=== PATIENT | male | born 1945 | race Caucasian/White ===

== ENCOUNTER 2018-04-16 17:23 | Emergency (ER) | payer MEDICARE, OTHER ==
[2018-04-16 18:26] VITALS: BP 180/89
--- NOTE | 2018-04-16 19:08 | EDM.PDOC ---
ED HPI GENERAL MEDICAL PROBLEM - General Chief Complaint: Bite:Animal, Insect Stated Complaint: WOODTICK BITE ON RT SHOULDER Time Seen by Provider: 04/16/18 18:58 Source of Information: Reports: Patient History Limitations: Reports: No Limitations - History of Present Illness INITIAL COMMENTS - FREE TEXT/NARRATIVE: Tick bite to right chest; about 5 days ago, removed a tick from chest, very difficult to remove. For the past two days has a fever with temp up 101, body aches, chills and joint pain. He is eating okay, denies any nausea, vomiting or diarrhea. rash on right chest, and right upper arm. Duration: Day(s): (5 days ago), Getting Worse (x2 days) Location: Reports: Generalized Quality: Reports: Ache (body aches and chillls) Severity: Moderate Improves with: Reports: Medication (fever controlled with tylenol) Worsens with: Reports: None Associated Symptoms: Reports: Fever/Chills, Malaise, Rash (right upper chest and right upper arm) Treatments RECONSTRUCTIVE DENTIST: Reports: Acetaminophen, NSAIDS Neck Pain Score (Numeric/FACES): 4 - Related Data Allergies Allergy/AdvReac Type Severity Reaction Status Date / Time Penicillins Allergy Difficulty Verified 12/29/15 10:45 Breathing Home Meds: Home Meds Clopidogrel [Plavix] 75 mg PO DAILY 12/25/14 [History] Metoprolol Tartrate [Lopressor] 25 mg PO BID 12/25/14 [History] Simvastatin [Zocor] 20 mg PO BEDTIME 12/25/14 [History] Naproxen Sodium [Aleve] 220 mg PO Q6H PRN 04/16/18 [History] Past Medical History Cardiovascular History: Reports: Stents Musculoskeletal History: Reports: Arthritis, Fracture, Osteoporosis Psychiatric History: Reports: Depression, Panic Attack, PTSD Endocrine/Metabolic History: Reports: Osteoporosis Hematologic History: Reports: Anticoagulation Therapy Dermatologic History: Reports: Other (See Below) Other Dermatologic History: rash - Past Surgical History Musculoskeletal Surgical History: Reports: None Social & Family History - Tobacco Use Smoking Status *Q: Current Every Day Smoker Years of Tobacco use: 56 Packs/Tins Daily: 1.5 - Caffeine Use Caffeine Use: Reports: Coffee, Soda - Alcohol Use Days Per Week of Alcohol Use: 7 Number of Drinks Per Day: 2 Total Drinks Per Week: 14 - Recreational Drug Use Recreational Drug Use: No - Living Situation & Occupation Occupation: Other (lives with his 3 dogs and 2 cats.) ED ROS GENERAL - Review of Systems Review Of Systems: See Below Constitutional: Reports: Fever, Chills, Fatigue, Other (body and joint aches) HEENT: Reports: No Symptoms Respiratory: Reports: No Symptoms Cardiovascular: Reports: No Symptoms Endocrine: Reports: No Symptoms GI/Abdominal: Reports: No Symptoms : Reports: No Symptoms Musculoskeletal: Reports: Shoulder Pain (right), Joint Pain, Muscle Pain, Muscle Stiffness (generalized) Skin: Reports: Bruising (from tick bite right upper arm and chest), Rash Neurological: Reports: No Symptoms Psychiatric: Reports: No Symptoms Hematologic/Lymphatic: Reports: No Symptoms Immunologic: Reports: No Symptoms ED EXAM, ANIMAL BITE - Physical Exam Exam: See Below Exam Limited By: No Limitations General Appearance: Alert, WD/WN, No Apparent Distress Eye Exam: Bilateral Eye: Conjunctival Injection Neck: Supple, Full Range of Motion Respiratory/Chest: No Respiratory Distress, Lungs Clear, Normal Breath Sounds, No Accessory Muscle Use Cardiovascular: Regular Rate, Rhythm, No Murmur Extremities: Normal Inspection, Normal Range of Motion, Non-Tender, Normal Capillary Refill, No Pedal Edema Neurological: No Motor/Sensory Deficits Psychiatric: Normal Affect, Normal Mood Skin Exam: Rash (rash noted to upper right chest and upper. bright pink tangirnaq to right upper arm extending into chest.) Lymphadenopathy: Bilateral: No Adenopathy Lymphatic: No Adenopathy Course - Vital Signs Last Recorded V/S: Last Vital Signs Temp 36.5 C 04/16/18 18:24 Pulse 69 04/16/18 18:24 Resp 16 04/16/18 18:24 BP 180/89 H 04/16/18 18:24 Pulse Ox 96 04/16/18 18:24 Departure - Departure Time of Disposition: 19:25 Disposition: Home, Self-Care 01 Condition: Good Clinical Impression: Acute Lyme disease Tick bite Qualifiers: Encounter type: initial encounter Qualified Code(s): W57.XXXA - Bitten or stung by nonvenomous insect and other nonvenomous arthropods, initial encounter - Discharge Information Referrals: Davey Yan MD [Primary Care Provider] - Forms: ED Department Discharge Care Plan Goals: Lymes disease -start tonight; Doxy 100mg by mouth two times a day for 14 days -continue Tylenol or Motrin for pain or fever. -follow up with Primary Care Doctor for recheck in 10 to14 days Return to ER for any increase pain, fever, chills, nausea, vomiting or not improved - Problem List & Annotations (1) Tick bite SNOMED Code(s): 47336838 Code(s): W57.XXXA - BIT/STUNG BY NONVENOM INSECT & OTH NONVENOM ARTHROPODS, INIT Status: Acute Priority: High Current Visit: Yes Qualifiers: Encounter type: initial encounter Qualified Code(s): W57.XXXA - Bitten or stung by nonvenomous insect and other nonvenomous arthropods, initial encounter (2) Acute Lyme disease SNOMED Code(s): 792203472 Code(s): A69.20 - LYME DISEASE, UNSPECIFIED Status: Acute Priority: High Current Visit: Yes - Problem List Review Problem List Initiated/Reviewed/Updated: Yes - Assessment/Plan Plan: Lymes disease -start tonight; Doxy 100mg by mouth two times a day for 14 days -continue Tylenol or Motrin for pain or fever. -follow up with Primary Care Doctor for recheck in 10 to14 days Return to ER for any increase pain, fever, chills, nausea, vomiting or not improved
== END 2018-04-16 19:28 | disposition home or self-care (01) ==
LOC: JP.ED 17:23
DX: S20.361A Insect bite (nonvenomous) of right front wall of thorax, initial encounter (principal); A69.20 Lyme disease, unspecified; Z88.0 Allergy status to penicillin; Z79.899 Other long term (current) drug therapy; Z79.01 Long term (current) use of anticoagulants; F17.210 Nicotine dependence, cigarettes, uncomplicated; W57.XXXA Bitten or stung by nonvenomous insect and other nonvenomous arthropods, initial encounter
CPT/HCPCS: 99283; 99284

== ENCOUNTER → 2021-02-22 | Day surgery (SDC) | payer OTHER, MEDICARE ==
[2021-02-22] MEDS: Sodium Chloride 0.9% 10 ML Syringe FLUSH PRN (06:30)
[2021-02-22 07:50] VITALS: BP 108/64; PULSE 96
--- NOTE | 2021-02-22 13:47 | OR ---
DATE OF PROCEDURE: 02/22/2021 SURGEON: Yolie Castaneda MD POSTOPERATIVE CARE: Postoperative care will be provided mainly at the [address] [place] [address] Eye [facility] in conjunction with [facility]. PREOPERATIVE DIAGNOSIS: Cataract, right eye. POSTOPERATIVE DIAGNOSIS: Cataract, right eye. PROCEDURE: Phacoemulsification with intraocular lens placement, right eye. ANESTHESIA: Topical and intracameral. ESTIMATED BLOOD LOSS: Minimal. COMPLICATIONS: None. PATHOLOGY SPECIMENS: None. SURGICAL FINDINGS: None. INDICATION FOR PROCEDURE: The patient is a 76-year-old male with history of a visually significant cataract in the right eye, which interfered with activities of daily living. This consisted of a nuclear sclerosis cataract. Following careful discussion of the risks, benefits and alternatives to cataract extraction with intraocular lens placement including blindness and , the patient elected to proceed, and informed, written consent was obtained prior to the procedure. DESCRIPTION OF THE PROCEDURE: The patient was previously identified, and a tanya placed above the right eye. All sources, including the patient, indicated that the right eye was the correct eye. The patient was subsequently taken to the operating room where standard monitors were applied. The patient was then prepped and draped in the usual sterile fashion for ophthalmic surgery. Attention was first directed at the 12 o'clock position where a paracentesis port was fashioned. Shugar solution followed by Viscoat was instilled into the eye. Attention was then directed to the 8:30 position where a triplanar incision was made in a near-clear manner using a keratome. A continuous capsulorrhexis was then made using a combination of the cystotome and Utrata forceps. Hydrodissection was achieved using a balanced salt solution, and the lens rotated nicely. Phacoemulsification was then done using a modified [id number] technique without complication. Phaco time was 7.86 CDE. The remaining cortex was removed using the irrigation/aspiration handpiece. Provisc was then instilled into the eye. A Technis lens, model DCB00, at 16.0 diopters was then placed in the capsular bag using an Noma injector. The remaining viscoelastic was removed using the irrigation/aspiration forceps. All wounds were then checked and found to be watertight. The lid speculum and drapes were removed. Maxitrol ointment was placed in the patient's right eye, and the eye was shielded. The patient tolerated the procedure well. The patient was instructed to follow up tomorrow. All needle and sponge counts were correct at the end of the procedure. There were no surgical findings. Yolie Castaneda MD /[id number]
== END ==
LOC: JP.SDS 05:54
PROVIDERS: ATTEND Ophthalmology
DX: H25.11 Age-related nuclear cataract, right eye (principal); Z88.0 Allergy status to penicillin
CPT/HCPCS: V2787-GY

== ENCOUNTER 2021-03-08 06:18 | Day surgery (SDC) | payer OTHER, MEDICARE ==
[2021-03-08] MEDS: Acetaminophen 500 MG Tab PO ONE (07:08)
[2021-03-08] MEDS: Sodium Chloride 0.9% 10 ML Syringe FLUSH PRN (07:09)
[2021-03-08 07:42] VITALS: BP 121/82; PULSE 104
--- NOTE | 2021-03-10 12:19 | OR ---
DATE OF PROCEDURE: 03/08/2021 SURGEON: Yolie Castaneda MD POSTOPERATIVE CARE: Postoperative care will be provided mainly at the [address] [place] [address] Eye [facility] in conjunction with [facility]. PREOPERATIVE DIAGNOSIS: Cataract, left eye. POSTOPERATIVE DIAGNOSIS: Cataract, left eye. PROCEDURE: Phacoemulsification with intraocular lens placement, left eye. ANESTHESIA: Topical and intracameral. ESTIMATED BLOOD LOSS: Minimal. COMPLICATIONS: None. PATHOLOGY SPECIMENS: None. SURGICAL FINDINGS: None. INDICATION FOR PROCEDURE: The patient is a 76-year-old male with history of a visually significant cataract in the left eye, which interfered with activities of daily living. This consisted of a nuclear sclerosis cataract. Following careful discussion of the risks, benefits and alternatives to cataract extraction with intraocular lens placement including blindness and , the patient elected to proceed, and informed, written consent was obtained prior to the procedure. DESCRIPTION OF THE PROCEDURE: The patient was previously identified, and a tanya placed above the left eye. All sources, including the patient, indicated that the left eye was the correct eye. The patient was subsequently taken to the operating room where standard monitors were applied. The patient was then prepped and draped in the usual sterile fashion for ophthalmic surgery. Attention was first directed at the 12 o'clock position where a paracentesis port was fashioned. Shugar solution followed by Viscoat was instilled into the eye. Attention was then directed to the 8:30 position where a triplanar incision was made in a near-clear manner using a keratome. A continuous capsulorrhexis was then made using a combination of the cystotome and Utrata forceps. Hydrodissection was achieved using a balanced salt solution, and the lens rotated nicely. Phacoemulsification was then done using a modified [id number] technique without complication. Phaco time was 5.10 CDE. The remaining cortex was removed using the irrigation/aspiration handpiece. Provisc was then instilled into the eye. A Technis lens, model DCB00, at 16.0 diopters was then placed in the capsular bag using an Creighton injector. The remaining viscoelastic was removed using the irrigation/aspiration forceps. All wounds were then checked and found to be watertight. The lid speculum and drapes were removed. Maxitrol ointment was placed in the patient's left eye, and the eye was shielded. The patient tolerated the procedure well. The patient was instructed to follow up tomorrow. All needle and sponge counts were correct at the end of the procedure. Yolie Castaneda MD /[id number]
== END 2021-03-08 07:57 | disposition home or self-care (01) ==
LOC: JP.SDS 06:18
PROVIDERS: ATTEND Ophthalmology
DX: H26.9 Unspecified cataract (principal); I25.10 Atherosclerotic heart disease of native coronary artery without angina pectoris; Z88.0 Allergy status to penicillin
CPT/HCPCS: A9270-GY; V2632

== ENCOUNTER 2021-03-13 19:55 | Emergency (ER) | payer OTHER, MEDICARE ==
[2021-03-13] MEDS ORDERED: Sodium Chloride 0.9% 1,000 ML IV SCH (21:00)
[2021-03-13] MEDS ORDERED: Iopamidol 612 MG/ML 100 ML Bottle IV SCH (22:30)
[2021-03-13] MEDS ORDERED: Sodium Chloride 0.9% 80 ML IV SCH (22:30)
--- NOTE | 2021-03-14 00:11 | EDM.PDOC ---
ED HPI GENERAL MEDICAL PROBLEM - General Chief Complaint: Syncope Stated Complaint: MEDICAL VIA [facility] Time Seen by Provider: 03/13/21 20:20 Source of Information: Reports: Patient, Family History Limitations: Reports: No Limitations - History of Present Illness INITIAL COMMENTS - FREE TEXT/NARRATIVE: 76-year-old male, , arrives by ambulance after having progressive. He usually has enough energy and strength to live independently but the last couple of weeks he has had recurring syncope and falls. Tonight he fell in his apartment, he did not get hurt but had to crawl on his knees to get to a phone. He has lost 30 pounds over the past 6 months, and is having worsening back pain. Onset: Gradual Duration: Chronic Lower Back Pain Score (Numeric/FACES): 3 - Related Data Allergies Allergy/AdvReac Type Severity Reaction Status Date / Time Penicillins Allergy Difficulty Verified 03/13/21 20:25 Breathing Home Meds: Home Meds Clopidogrel [Plavix] 75 mg PO DAILY 12/25/14 [History] Metoprolol Tartrate [Lopressor] 25 mg PO BID 12/25/14 [History] Simvastatin [Zocor] 20 mg PO BEDTIME 12/25/14 [History] Losartan [Cozaar] 50 mg pe PO DAILY 02/19/21 [History] diphenhydrAMINE [Benadryl] 25 mg PO Q8HR PRN 03/06/21 [History] Past Medical History HEENT History: Reports: Cataract Cardiovascular History: Reports: CAD, High Cholesterol, Hypertension Gastrointestinal History: Reports: Chronic Constipation Musculoskeletal History: Reports: Arthritis, Fracture, Osteoporosis Psychiatric History: Reports: Depression, Panic Attack, PTSD Endocrine/Metabolic History: Reports: Osteoporosis Hematologic History: Reports: Anticoagulation Therapy Dermatologic History: Reports: Other (See Below) Other Dermatologic History: rash - Infectious Disease History Infectious Disease History: Reports: Chicken Pox, Measles, Mumps - Past Surgical History HEENT Surgical History: Reports: Cataract Surgery Cardiovascular Surgical History: Reports: None GI Surgical History: Reports: Colonoscopy Endocrine Surgical History: Reports: None Musculoskeletal Surgical History: Reports: None Dermatological Surgical History: Reports: None Social & Family History - Family History Family Medical History: No Pertinent Family History - Tobacco Use Tobacco Use Status *Q: Current Some Day Tobacco User Years of Tobacco use: 40 Packs/Tins Daily: 1 Used Tobacco, but Quit: No Second Hand Smoke Exposure: No - Caffeine Use Caffeine Use: Reports: Coffee, Soda - Alcohol Use Days Per Week of Alcohol Use: 2 Number of Drinks Per Day: 1 Total Drinks Per Week: 2 - Recreational Drug Use Recreational Drug Use: No - Living Situation & Occupation Occupation: Other (lives with his 3 dogs and 2 cats.) ED ROS GENERAL - Review of Systems Review Of Systems: See Below Constitutional: Reports: Malaise, Weight Loss. Denies: Fever, Chills HEENT: Denies: Throat Pain Respiratory: Denies: Shortness of Breath, Cough, Sputum Cardiovascular: Denies: Chest Pain, Palpitations GI/Abdominal: Reports: Decreased Appetite. Denies: Abdominal Pain, Nausea, Vomiting : Reports: Flank Pain (Especially right-sided) Musculoskeletal: Reports: Back Pain Skin: Denies: Bruising Neurological: Reports: Dizziness, Syncope, Weakness Psychiatric: Reports: No Symptoms ED EXAM, GENERAL - Physical Exam Exam: See Below Exam Limited By: No Limitations General Appearance: Alert, No Apparent Distress Eye Exam: Bilateral Eye: Normal Inspection Head: Atraumatic Neck: Non-Tender Respiratory/Chest: Lungs Clear Cardiovascular: Regular Rate, Rhythm. No: Extra Beats GI/Abdominal: Soft, Non-Tender Back Exam: No: CVA Tenderness (R), CVA Tenderness (L), Paraspinal Tenderness, Vertebral Tenderness Extremities: Normal Inspection. No: Pedal Edema Neurological: Alert, Oriented, No Motor/Sensory Deficits Psychiatric: Normal Affect, Normal Mood Skin Exam: Warm, Dry Course - Vital Signs Last Recorded V/S: Last Vital Signs Temp 97.7 F 03/14/21 01:21 Pulse 94 03/14/21 01:21 Resp 16 03/14/21 01:21 BP 114/69 03/14/21 01:21 Pulse Ox 99 03/14/21 01:21 - Orders/Labs/Meds Orders: Active Orders 24 hr Category Date Time Status Iopamidol [Isovue-300 (61%)] Med 03/13/21 22:30 Active 100 ml IV . DIRECTED Sodium Chloride 0.9% [Normal Saline] 1,000 ml Med 03/13/21 21:00 Active IV ASDIRECTED Sodium Chloride 0.9% [Normal Saline] 80 ml Med 03/13/21 22:30 Active IV ASDIRECTED Medication Orders Sodium Chloride (Normal Saline) 1,000 mls @ 999 mls/hr IV ASDIRECTED ALFIE Last Admin: 03/13/21 21:25 Dose: 999 mls/hr Documented by: NGUYEN Sodium Chloride (Normal Saline) 80 mls @ 3 mls/sec IV ASDIRECTED ALFIE Last Admin: 03/13/21 22:40 Dose: 3 mls/sec Documented by: CARMINA Iopamidol (Iopamidol 612 Mg/Ml 100 Ml Bottle) 100 ml IV . DIRECTED ALFIE Last Admin: 03/13/21 22:40 Dose: 100 ml Documented by: CARMINA Labs: Laboratory Tests 03/13/21 03/13/21 03/13/21 Range/Units 21:02 22:12 22:31 WBC 11.2 H (4.5-11.0) K/uL RBC 3.67 L (4.30-5.90) M/uL Hgb 11.3 L (12.0-15.0) g/dL Hct 35.4 L (40.0-54.0) % MCV 97 (80-98) fL MCH 31 (27-31) pg MCHC 32 (32-36) % Plt Count 414 H (150-400) K/uL Neut % (Auto) 71 H (36-66) % Lymph % (Auto) 17 L (24-44) % [place] % (Auto) 10 H (2-6) % Eos % (Auto) 2 (2-4) % Baso % (Auto) 0 (0-1) % Sodium 144 (140-148) mmol/L Potassium 4.5 (3.6-5.2) mmol/L Chloride 107 (100-108) mmol/L Carbon Dioxide 26 (21-32) mmol/L Anion Gap 10.6 (5.0-14.0) mmol/L BUN 26 H (7-18) mg/dL Creatinine 0.9 (0.8-1.3) mg/dL Est Cr Clr Drug Dosing 60.06 mL/min Estimated GFR (MDRD) > 60 (>60) Glucose 86 (74-106) mg/dL Calcium 9.1 (8.5-10.1) mg/dL Urine Color Yellow (YELLOW) Urine Appearance Slightly cloudy A (CLEAR) Urine pH 6.0 (5.0-8.0) Ur Specific Stout 1.015 (1.008-1.030) Urine Protein Trace H (NEGATIVE) mg/dL Urine Glucose (UA) Negative (NEGATIVE) mg/dL Urine Ketones Negative (NEGATIVE) mg/dL Urine Occult Blood Negative (NEGATIVE) Urine Nitrite Negative (NEGATIVE) Urine Bilirubin Negative (NEGATIVE) Urine Urobilinogen 0.2 (0.2-1.0) EU/dL Ur Leukocyte Esterase Negative (NEGATIVE) Urine RBC Not seen (0-5) Urine WBC 0-5 (0-5) Ur Epithelial Cells Few Amorphous Sediment Not seen Urine Bacteria Not seen Urine Mucus Moderate Urine Other Meds: Medications Generic Name Dose Route Start Last Admin Trade Name Freq PRN Reason Stop Dose Admin Sodium Chloride 1,000 mls @ 999 mls/hr 03/13/21 21:00 03/13/21 21:25 Normal Saline IV 999 mls/hr ASDIRECTED ALFIE Administration Sodium Chloride 80 mls @ 3 mls/sec 03/13/21 22:30 03/13/21 22:40 Normal Saline IV 3 mls/sec ASDIRECTED ALFIE Administration Iopamidol 100 ml 03/13/21 22:30 03/13/21 22:40 Iopamidol 612 Mg/Ml 100 Ml Bottle IV 100 ml . DIRECTED ALFIE Administration Discontinued Medications Generic Name Dose Route Start Last Admin Trade Name Freq PRN Reason Stop Dose Admin Hydromorphone HCl 0.5 mg 03/14/21 01:32 03/14/21 01:37 Hydromorphone 0.5 Mg/0.5 Ml Syringe IVPUSH 03/14/21 01:33 0.5 mg ONETIME ONE Administration - Re-Assessments/Exams Free Text/Narrative Re-Assessment/Exam: 03/14/21 02:02 CBC, BMP and UA were obtained. These were reassuring and showed no evidence of infection. A CT scan of the chest abdomen and pelvis were then obtained with IV contrast and the following results were found. IMPRESSION: 1. 6.1 x 5.2 x 3.0 centimeter left lung mass as detailed above, suspicious for primary lung malignancy. 2. Indeterminate 3-4 millimeter noncalcified nodule in the right lung. 3. Bulky periaortic lymphadenopathy in the abdomen and moderately enlarged portacaval lymphadenopathy. 4. Heterogeneous 8.6 x 5.1 x 6.2 centimeter right adrenal metastasis and small 1.7 centimeter left adrenal metastasis. 5. Nonspecific wall thickening of the right renal pelvis. Infected is possible and correlation with urinalysis is suggested. 6. Nonacute additional findings as detailed above. These findings were discussed with the patient, the metastatic disease to the right adrenal gland is likely causing his right flank pain. Discussed his condition with the hospitalist service in [facility], and the patient needs oncology work-up as well as interventional radiology for biopsies and is too weak to go home and his blood pressure is too labile, so Dr. Casey kindly accepted the patient for transfer for direct admission. He was given 0.5 mg of IV Dilaudid prior to transfer. Departure - Departure Time of Disposition: 01:40 Disposition: DC/Tfer to Other Clinical Impression: Right flank pain, chronic Metastatic lung cancer (metastasis from lung to other site) Qualifiers: Laterality: left Qualified Code(s): C34.92 - Malignant neoplasm of unspecified part of left bronchus or lung Hypotension Qualifiers: Hypotension type: unspecified hypotension type Qualified Code(s): I95.9 - Hypotension, unspecified - Discharge Information Referrals: PCP,None [Primary Care Provider] - Forms: ED Department Discharge Care Plan Goals: Patient is to be transferred to [facility] for initial stabilization by the hospitalist service for eventual work-up and treatment for metastatic lung cancer to the adrenal glands resulting in chronic pain, weakness, and labile blood pressure with recurring syncope and collapse. Sepsis Event Note (ED) - Evaluation Sepsis Screening Result: No Definite Risk - Focused Exam Vital Signs: Vital Signs Temp Pulse Resp BP Pulse Ox 03/14/21 01:21 97.7 F 94 16 114/69 99 03/13/21 20:34 97.7 F 81 18 107/63 97 03/13/21 20:04 97.7 F 81 18 107/63 97 - My Orders Last 24 Hours: My Active Orders 03/13/21 21:00 Sodium Chloride 0.9% [Normal Saline] 1,000 ml IV ASDIRECTED 03/13/21 22:30 Iopamidol [Isovue-300 (61%)] 100 ml IV . DIRECTED Sodium Chloride 0.9% [Normal Saline] 80 ml IV ASDIRECTED - Assessment/Plan Last 24 Hours: My Active Orders 03/13/21 21:00 Sodium Chloride 0.9% [Normal Saline] 1,000 ml IV ASDIRECTED 03/13/21 22:30 Iopamidol [Isovue-300 (61%)] 100 ml IV . DIRECTED Sodium Chloride 0.9% [Normal Saline] 80 ml IV ASDIRECTED
--- NOTE | 2021-03-14 00:23 | CRLCT ---
INDICATION: WEIGHT LOSS, HYPOTENSION, BACK PAIN, WEAKNESS CT CHEST, ABDOMEN, AND PELVIS WITH CONTRAST TECHNIQUE: Multidetector CT imaging was performed through the chest, abdomen, and pelvis following intravenous contrast administration using 100 mL Isovue-300. Coronal and sagittal reconstructions were generated. COMPARISON: None. FINDINGS: Lungs and airways: Heterogeneous 6.1 x 5.2 x 3.0 centimeter left lung mass, extending from the superior aspect of the left lung hilum into the left upper lobe along the anterior aspect of the major fissure. The mass causes marked narrowing of the left upper lobe bronchus at the left lung hilum. Indeterminate 3-4 millimeter nodule in the right upper lobe on image 34 of series 3. Pleura and pleural spaces: No pleural effusions or pneumothorax. Heart and mediastinum: Normal heart size. No significant pericardial effusion. A few small mediastinal lymph nodes, none pathologically enlarged by size criteria. Vascular structures: Normal caliber thoracic aorta. Mild ectasia of the distal abdominal aorta and common iliac arteries bilaterally. Moderate diffuse atherosclerotic changes of the abdominal aorta and iliac arteries. Moderate coronary artery calcifications. Chest wall and axillae: No mass or axillary lymphadenopathy. Liver and spleen: Within normal limits. Gallbladder and bile ducts: Cholelithiasis without findings suggesting cholecystitis. No biliary dilation identified. Pancreas, adrenals, and retroperitoneum: Heterogeneous 8.6 x 5.1 x 6.2 centimeter mass superior and anterior to the upper pole of the right kidney consistent with a large adrenal metastasis, which appears to invade the medial aspect of the right hepatic lobe. A 1.7 centimeter left adrenal nodule may represent an additional adrenal metastasis. No pancreatic mass. Moderately enlarged portacaval lymphadenopathy and bulky retroperitoneal/periaortic lymphadenopathy anterior and to the left of the abdominal aorta, extending from the level of the left renal vein inferiorly to just below the aortic bifurcation. Kidneys, ureters, and urinary bladder: Small bilateral renal cortical cysts. Nonspecific bilateral perinephric fat stranding. No definite hydronephrosis. Nonspecific wall thickening of the right renal pelvis. No bladder mass or definite wall thickening. Gastrointestinal tract and peritoneum: Normal caliber bowel without wall thickening. Normal appendix. No free air, abscess, or significant free fluid. Reproductive organs: Borderline prostatic enlargement. Bones: Spinal degenerative changes. IMPRESSION: 1. 6.1 x 5.2 x 3.0 centimeter left lung mass as detailed above, suspicious for primary lung malignancy. 2. Indeterminate 3-4 millimeter noncalcified nodule in the right lung. 3. Bulky periaortic lymphadenopathy in the abdomen and moderately enlarged portacaval lymphadenopathy. 4. Heterogeneous 8.6 x 5.1 x 6.2 centimeter right adrenal metastasis and small 1.7 centimeter left adrenal metastasis. 5. Nonspecific wall thickening of the right renal pelvis. Infected is possible and correlation with urinalysis is suggested. 6. Nonacute additional findings as detailed above. GRECIA LEROY MD [facility] Dictated by Sonny Leroy MD @ 03/14/2021 12:18:52 AM Dictated by: Sonny Leroy MD @ 03/14/2021 00:22:05 (Electronically Signed)
[2021-03-14 01:23] VITALS: BP 114/69; PULSE 94
[2021-03-14] MEDS ORDERED: HYDROmorphone 0.5 MG/0.5 ML Syringe IVPUSH ONE (01:32)
== END 2021-03-14 01:40 | disposition other institution (70) ==
LOC: JP.ED 19:55
DX: R10.9 Unspecified abdominal pain (principal); I95.9 Hypotension, unspecified; G89.29 Other chronic pain; C34.92 Malignant neoplasm of unspecified part of left bronchus or lung; I25.10 Atherosclerotic heart disease of native coronary artery without angina pectoris; E78.00 Pure hypercholesterolemia, unspecified; I10 Essential (primary) hypertension; Z88.0 Allergy status to penicillin; Z79.02 Long term (current) use of antithrombotics/antiplatelets; Z79.899 Other long term (current) drug therapy; Z72.0 Tobacco use
CPT/HCPCS: 36415; 71260; 74177; 80048; 81001; 85025; 96374; 99285; J1170; J7030; Q9967